=== PATIENT | female | born 1935 | race Caucasian/White ===

== ENCOUNTER 2019-11-24 08:11 | Emergency (ER) | payer OTHER, MEDICARE ==
[~2019-11-24] VITALS: Ht 165.1 cm; Wt 59.9 kg
[2019-11-24 08:15] VITALS: BP 144/98
--- NOTE | 2019-11-24 08:19 | NUR ---
PT TO BED 11 WITH STEADY GAIT
--- NOTE | 2019-11-24 08:28 | NUR ---
PATIENT PRESENTS TO ED WITH RIGHT SHOULDER PAIN X 1 DAY. PT STATES THROBBING PAIN OF 10/10. +TINGLING SENSATION IN RIGHT ARM. NO RECALL OF ANY TRAUMA OR INJURY TO AREA. NO PAIN MEDS TAKEN. CAP REFILL <4 SECS. AOX4 WITH EVEN AND STEADY GAIT; VSS; PATIENT POSITIONED FOR COMFORT; HOB ELEVATED; BEDRAILS UP X2; BED DOWN. ER MD MADE AWARE OF PT STATUS. PMH: HTN, A. FIB MEDS: ELIQUIS, METOPROLOL NKA
[2019-11-24] MEDS ORDERED: ACETAMINOPHEN EXTRA STRENGTH 500 MG TAB PO ONE (09:05)
[2019-11-24 09:24] VITALS: BP 144/98
--- NOTE | 2019-11-24 09:24 | NUR ---
Patient discharged with v/s stable. Written and verbal after care instructions given and explained. Patient alert, oriented and verbalized understanding of instructions. Ambulatory with steady gait. All questions addressed prior to discharge. ID band removed. Patient advised to follow up with PMD. Rx of TYLENOL, TRAMADOL given. Patient educated on indication of medication including possible reaction and side effects. Opportunity to ask questions provided and answered.
== END 2019-11-24 09:24 | disposition home or self-care (01) ==
LOC: MED 08:11
DX: M75.31 Calcific tendinitis of right shoulder (principal); I48.91 Unspecified atrial fibrillation; I10 Essential (primary) hypertension
CPT/HCPCS: 73030; 99283